=== PATIENT | male | born 2000 | race African-American/Black ===

== ENCOUNTER 2022-02-03 10:26 | Emergency (ER) | payer OTHER ==
[~2022-02-03] VITALS: Ht 177.8 cm; Wt 80.0 kg
[2022-02-03 10:41] VITALS: BP 126/66
[2022-02-03] MEDS ORDERED: IBUPROFEN 600MG TABLET PO STA (12:15)
[2022-02-03] MEDS ORDERED: IBUP-2029 PO (13:54)
== END 2022-02-03 14:05 | disposition home or self-care (01) ==
LOC: ER 10:26
DX: S90.02XA Contusion of left ankle, initial encounter (principal); W22.8XXA Striking against or struck by other objects, initial encounter; Y93.89 Activity, other specified; Y92.89 Other specified places as the place of occurrence of the external cause; Y99.8 Other external cause status
CPT/HCPCS: 73610; 99283